=== PATIENT | female | born 1945 | race Caucasian/White ===

== ENCOUNTER 2017-04-24 07:13 | Day surgery (SDC) | payer OTHER ==
[~2017-04-24] VITALS: Ht 149.9 cm; Wt 69.0 kg
[~2017-04-24 07:13] MED LIST: ASPIRIN81 M2 PO; DIALYVITE TABL1 EACH PO; GABAPENTIN100 MG PO; GABAPENTIN300 MG PO; MECLIZINE HCL25 MG PO; NORVASC10 MG PO; PROTONIX40 MG PO; RENVELA800 MG PO; VITAMIN D31000 UNIT PO
[2017-04-24 07:50] LABS: POINT-OF-CARE METER ID UU13113696
[2017-04-24 08:50] LABS: METH RESISTANT S AUREUS PCR NEGATIVE (NEGATIVE)
[2017-04-24 08:54] LABS: PROBE CHECK PASS; SPECIMEN PROCESSING CONTROL PASS
== END 2017-04-24 09:45 | disposition home or self-care (01) ==
LOC: CATH 07:13
PROVIDERS: Surgery
DX: T82.858A Stenosis of other vascular prosthetic devices, implants and grafts, initial encounter (principal); I12.0 Hypertensive chronic kidney disease with stage 5 chronic kidney disease or end stage renal disease; E11.22 Type 2 diabetes mellitus with diabetic chronic kidney disease; N18.6 End stage renal disease; Z99.2 Dependence on renal dialysis; E78.5 Hyperlipidemia, unspecified; Z79.82 Long term (current) use of aspirin; Y83.2 Surgical operation with anastomosis, bypass or graft as the cause of abnormal reaction of the patient, or of later complication, without mention of misadventure at the time of the procedure
CPT/HCPCS: 82948; 87641; C1725; C1769; C1894; J1644; J2250; J3010

== ENCOUNTER 2018-01-29 07:49 | Day surgery (SDC) | payer OTHER ==
[~2018-01-29] VITALS: Ht 152.4 cm; Wt 68.0 kg
== END 2018-01-29 11:30 | disposition home or self-care (01) ==
LOC: CATH 07:49
PROVIDERS: Surgery
DX: T82.858A Stenosis of other vascular prosthetic devices, implants and grafts, initial encounter (principal); I12.0 Hypertensive chronic kidney disease with stage 5 chronic kidney disease or end stage renal disease; E11.22 Type 2 diabetes mellitus with diabetic chronic kidney disease; N18.6 End stage renal disease; Z99.2 Dependence on renal dialysis; E78.00 Pure hypercholesterolemia, unspecified
CPT/HCPCS: 82948; 87641; C1725; C1769; C1894; J0360; J1644; J2250; J3010